=== PATIENT | male | born 1990 | race Two or more races ===

== ENCOUNTER 2018-03-24 14:25 | Emergency (ER) | payer SELFPAY ==
[~2018-03-24] VITALS: Ht 185.4 cm; Wt 93.4 kg
[2018-03-24 14:25] VITALS: BP 121/75
== END 2018-03-24 15:36 | disposition home or self-care (01) ==
LOC: ER 14:27
DX: S16.1XXA Strain of muscle, fascia and tendon at neck level, initial encounter (principal); R51 Headache; V89.2XXA Person injured in unspecified motor-vehicle accident, traffic, initial encounter; Y93.89 Activity, other specified; Y92.89 Other specified places as the place of occurrence of the external cause; Y99.8 Other external cause status
CPT/HCPCS: 99281; A4606; Z7610; Z7502